=== PATIENT | male | born 1970 | race Caucasian/White ===

== ENCOUNTER → 2016-06-28 | Outpatient (CLI) | payer OTHER ==
--- NOTE | 2016-06-28 08:39 | DIAGNOSTIC IMAGING REPORT ---
GI SERIES W/AIR ROUTINE CLINICAL HISTORY: Epigastric pain. Gastric reflux. COMPARISON STUDY: None. FLUOROSCOPY TIME: 0.6 minutes. FINDINGS: 21 fluoroscopic images were obtained. Esophageal motility was normal. No esophageal mass or stricture was identified. No reflux was elicited. There was no hiatal hernia. Gastric fold pattern was normal. Duodenum was normal. Caliber of the opacified jejunum was normal. IMPRESSION: Unremarkable double contrast upper GI series. Electronically signed by: Randall Delcid M.D. 06/28/2016 8:38 AM Dictated Date/Time: 06/28/2016 8:37 AM
== END | disposition home or self-care (01) ==
LOC: C.RAD 07:50
PROVIDERS: ATTEND Internal Medicine
DX: R10.13 Epigastric pain (principal); K21.9 Gastro-esophageal reflux disease without esophagitis

== ENCOUNTER → 2016-08-06 | Outpatient (CLI) | payer OTHER ==
[2016-08-06 13:35] LABS: BASO % 0.8 %; BASO ABS # 0.04 K/uL (0-0.2); COMPLETE YES; EOS % 1.8 %; HEMATOCRIT 43.2 % (42-52); IG% 0.4 %; LYMPH % 30.6 %; LYMPH ABS # 1.55 K/uL (1.2-3.4); MEAN CELL VOLUME 87.1 fL (80-100); MEAN CORPUSCULAR HEMOGLOBIN 30.6 pg (25-34); MEAN CORPUSCULAR HGB CONC 35.2 g/dl (32-36); MONO % 10.7 %; NEUT % 55.7 %; PLATELET COUNT 218 K/uL (130-400); RED BLOOD COUNT 4.96 M/uL (4.7-6.1); WHITE BLOOD COUNT 5.06 K/uL (4.8-10.8)
[2016-08-06 14:13] LABS: RATIO 10.3 mcg/mg (0-30.0)
[2016-08-06 14:17] LABS: ALT/SGPT 31 U/L (12-78); BLOOD UREA NITROGEN 13 mg/dl (7-18); BUN/CREATININE RATIO 12.1 (10-20); CALCIUM 8.6 mg/dl (8.5-10.1); CARBON DIOXIDE 30 mmol/L (21-32); CHLORIDE 107 mmol/L (98-107); CHOLESTEROL 182 mg/dl (0-200); GLUCOSE 124 mg/dl (70-99); MAGNESIUM 2.1 mg/dl (1.8-2.4); POTASSIUM 4.5 mmol/L (3.5-5.1); SODIUM 142 mmol/L (136-145); TRIGLYCERIDES 111 mg/dl (0-150); VERY LOW DENSITY LIPOPROT CALC 22 mg/dl
[2016-08-06 14:26] LABS: ALB/GLOB RATIO 1.3 (0.9-2); ALKALINE PHOSPHATASE 60 U/L (45-117); AST/SGOT 15 U/L (15-37); FERRITIN 156.9 ng/ml (8.0-388.0); HDL CHOLESTEROL 45 mg/dl; LDL CHOLESTEROL CALCULATED 115 mg/dl
[2016-08-06 14:47] LABS: ESTIMATED AVERAGE GLUCOSE 123 mg/dl; HA1C FLAG Normal (Normal)
== END | disposition home or self-care (01) ==
LOC: C.LABBC 10:28
PROVIDERS: ATTEND Nurse Practitioner Family
DX: Z13.220 Encounter for screening for lipoid disorders (principal); Z13.1 Encounter for screening for diabetes mellitus; R53.83 Other fatigue; E55.9 Vitamin D deficiency, unspecified

== ENCOUNTER 2021-10-30 13:07 | Inpatient (IN) ==
[2021-10-30 14:01] LABS: Basophils # (auto) 0.03 K/uL (0-0.2); Basophils % (auto) 0.5 %; Eosinophils # (auto) 0.21 K/uL (0-0.5); Eosinophils % (auto) 3.7 %; Hemoglobin 15.6 g/dL (14.0-18.0); Immature Granulocytes # (auto) 0.01 K/uL (0.00-0.02); Immature Granulocytes % (auto) 0.2 %; Lymphocytes # (auto) 2.55 K/uL (1.2-3.4); Lymphocytes % (auto) 44.5 %; Mean Corpuscular Hgb Conc 35.5 g/dL (32-36); Mean Corpuscular Volume 90.2 fL (80-100); Mean Platelet Volume 10.2 fL (7.4-10.4); Monocytes # (auto) 0.46 K/uL (0.11-0.59); Neutrophils # (auto) 2.47 K/uL (1.4-6.5); Neutrophils % (auto) 43.1 %; Platelet Count 254 K/uL (130-400); RDW Coefficient of Variation 12.7 % (11.5-14.5); RDW Standard Deviation 41.5 fL (36.4-46.3); Red Blood Count 4.88 M/uL (4.7-6.1); White Blood Count 5.73 K/uL (4.8-10.8)
[2021-10-30] MEDS ORDERED: SODIUM CHLORIDE 0.9% 1000ML 1,000 ML IV ONE (14:09)
[2021-10-30] MEDS ORDERED: NITROGLYCERIN 2% OINTMENT 30GM TUBE ONE (14:10)
[2021-10-30] MEDS: NITROGLYCERIN 2% OINTMENT 30GM TUBE EXT STA (14:13)
--- NOTE | 2021-10-30 14:18 | Emergency Department Note ---
Impression & Plan Precordial chest pain, Bradycardia, Syncope, Elevated troponin ED Provider Note NAME: YVETTE LAKE AGE: 51 SEX: M : 1970 ARRIVES VIA: Ambulance INFORMANT: [Patient] ED PROVIDER(S): [Asad Lux MD] CHIEF COMPLAINT: Chest pain HISTORY OF PRESENT ILLNESS: The patient is a 51-year-old male with no known coronary disease. 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 He is also an avid swimmer. The patient states that today, about 1.5 hours ago, he started developing pressure at the top of his chest and base of his neck. He was not exerting himself. Things felt tight. Both shoulders and arms got heavy more so on the left side. He then developed some chest pain that he would rate as an 8/10. He felt tight and pressure-like across the chest. He actually had a syncopal spell although, he did not hit his head. He was in a chair when this happened. He presents by ambulance. The patient did receive aspirin orally prior to arrival. The patient states he was clammy and pale. He was nauseated, there was no vomiting. He was not short of breath. The patient has in the past had a syncopal event or 2. He has a history of prediabetes and a low pulse. He does not smoke. His grandfathers have had heart issues. REVIEW OF SYSTEMS: See HPI for pertinent positives and negatives. A total of ten systems were reviewed and were otherwise negative. PMHx/PSHx: See Below SOCIAL HISTORY: See Below. PHYSICAL EXAM: GENERAL: Patient is in no acute distress. HEENT: No acute trauma, normocephalic atraumatic, mucous membranes moist, no nasal congestion, no scleral icterus. NECK: No stridor, no adenopathy, no meningismus, trachea is midline. LUNGS: A few crackles at the bases, no wheezing, no respiratory distress, breath sounds equal. HEART: Bradycardic, regular rhythm, no murmurs. ABDOMEN: Soft, nontender, bowel sounds positive, no peritonitis. EXTREMITIES: No cyanosis or edema, full range of motion of all the joints without pain or difficulty, no signs for acute trauma. NEUROLOGIC: Oriented x 3, no acute motor or sensory deficits, no focal weakness. SKIN: No rash, no jaundice, no diaphoresis. DIFFERENTIAL DIAGNOSIS: Cardiac ischemia, aortic dissection, pulmonary embolism, pneumothorax, pneumonia, pericarditis, myocarditis, esophageal rupture, GERD, cholecystitis, pancreatitis, musculoskeletal, as well as other pathologies. EMERGENCY DEPARTMENT COURSE/PROCEDURES: ECG: Indication was chest pain. The ECG shows a sinus bradycardia with a rate of 48. There are no ST elevations, no PVCs. The QTc is 384. Repeat EKG: Indication was chest pain. The ECG shows a sinus bradycardia with a rate of 56. There is no ST elevation, no PVCs. The QTc is 418. Compared to the previous ECG, I see no significant change. 3rd ECG: Indication was chest pain. The ECG shows a sinus bradycardia with a rate of 46. There appears to be a potential inferior infarct present. There is no ST elevation, no PVCs, the QTc is 383. Compared to an ECG from earlier today, the potential inferior infarct is now present. Continuous Cardiac Monitoring: An order was placed for continuous cardiac monitoring. The monitor shows a rate of 49 with sinus bradycardia. Critical Care Note: I have personally spent 45 minutes of critical care time in the direct management of this patient. This includes bedside care, i nterpretation of diagnostic studies, and testing, discussion with consultants, patient, and family members, and other required patient management activities. This 45 minutes is in excess of all separately billable procedures. MEDICAL DECISION MAKING: There is no leukocytosis or concerning anemia. There is a normal platelet count. No significant electrolyte abnormality or renal failure. No worrisome liver enzyme elevation. No evidence for pancreatitis. The patient appeared to be in a euthyroid state. Chest x-ray did not show mediastinal widening, pneumonia or pneumothorax. Chest CT did not show aortic dissection or PE. Initial ECG showed a sinus bradycardia without any evidence for acute ischemic change. Initial troponin was normal, a repeat troponin about 2 or 3 hours later showed an elevation consistent with potential cardiac injury/strain. Patient did have a 3rd ECG while here in the ED, he had evidence for potential inferior infarct on ECG which was not noticed on the first 2 ECGs. The patient presents with chest pain. He had taken aspirin prior to arrival. He was given nitroglycerin paste and felt markedly better after this applicat ion. In addition to the nitroglycerin, the patient was given a liter of IV saline for hydration purposes. I spoke with cardiology--admission/observation was recommended. I talked to the patient about staying in the hospital, he was initially reluctant but did consent to a second troponin test. After the second troponin returned elevated, the patient did consent to stay in the hospital for further care. I spoke with the case management team, the on-call hospitalist has been consulted. Further cardiac work-up is clearly warranted. Past Med/Surg History Medical History Vasovagal near syncope Surgical History S/P tooth extraction Family History Uncle Myocardial infarction Cancer Prostate cancer Grandfather (Maternal) Heart disease Myocardial infarction Grandfather (Paternal) Heart disease Myocardial infarction Denies family history of Colon cancer Ovarian cancer Breast cancer Social History Smoking Status: Never smoker Second Hand Exposure: No; Hx Alcohol Use: Yes Alcohol type: beer Hx Substance Use: No Preferred Language: Guyanese Communication Ability: Effective Visual Impairment: No Limitations Hearing Ability: Normal Photographs Curator Required: No Beliefs That Will Affect Care: None marital status: Single Current Living Situation: Alone current occupational status: employed current occupation: Self-employed Other Information That Helps Us Care for You: No Feels Safe at Home: Yes Safety Concerns: Feels Safe At This Time Dental Care, Regularly: Yes Physical Activity Frequency: 3-4 Times per Week Assistive Devices: None Allergies Allergies Allergy/AdvReac Type Severity Reaction Status Date / Time erythromycin base Allergy Intermediate Hives Verified 10/30/21 15:48 Home Meds Home Medications Medication Instructions Recorded Confirmed aspirin 325 mg tablet 325 mg PO DIRECTED PRN 10/30/21 10/30/21 aspirin 81 mg chewable tablet 243 mg PO ONCE PRN 10/30/21 10/30/21 Results & Data (ED) Vital Signs Vital Signs - 24 hr 10/30/21 13:14 10/30/21 13:15 10/30/21 13:30 Temperature 36.5 C Temperature Source Temporal Artery Scan Pulse Rate 52 L 47 L 46 L Pulse Rhythm Regular Pulse Strength Normal Respiratory Rate 16 16 13 Respiratory Effort / Characteristics Non-Labored Respiratory Depth Normal Blood Pressure 133/89 Blood Pressure Mean 103 Pulse Oximetry 96 97 96 Oxygen Delivery Method Room Air Room Air Room Air Sepsis Recent Fever Within 48 Hours No Sepsis New/Unexplained Change in Mental Status No Sepsis Action Taken by Nursing No Action Required 10/30/21 13:45 10/30/21 13:46 10/30/21 13:53 Temperature Temperature Source Pulse Rate 51 L 52 L 48 L Pulse Rhythm Regular Pulse Strength Respiratory Rate 18 15 22 Respiratory Effort / Characteristics Respiratory Depth Blood Pressure 127/87 Blood Pressure Mean 100 Pulse Oximetry 97 98 97 Oxygen Delivery Method Room Air Room Air Room Air Sepsis Recent Fever Within 48 Hours Sepsis New/Unexplained Change in Mental Status Sepsis Action Taken by Nursing 10/30/21 14:00 10/30/21 14:12 10/30/21 14:15 Temperature Temperature Source Pulse Rate 54 L 53 L 51 L Pulse Rhythm Pulse Strength Respiratory Rate 18 22 16 Respiratory Effort / Characteristics Respiratory Depth Blood Pressure 139/93 148/86 H Blood Pressure Mean 108 106 Pulse Oximetry 98 97 98 Oxygen Delivery Method Room Air Room Air Room Air Sepsis Recent Fever Within 48 Hours Sepsis New/Unexplained Change in Mental Status Sepsis Action Taken by Nursing 10/30/21 14:30 10/30/21 14:45 10/30/21 15:00 Temperature Temperature Source Pulse Rate 47 L 50 L 48 L Pulse Rhythm Pulse Strength Respiratory Rate 16 14 14 Respiratory Effort / Characteristics Respiratory Depth Blood Pressure 131/91 141/88 H 144/87 H Blood Pressure Mean 104 105 106 Pulse Oximetry 97 99 Oxygen Delivery Method Room Air Room Air Sepsis Recent Fever Within 48 Hours Sepsis New/Unexplained Change in Mental Status Sepsis Action Taken by Nursing 10/30/21 15:15 10/30/21 15:30 10/30/21 15:45 Temperature Temperature Source Pulse Rate 56 L 53 L 56 L Pulse Rhythm Pulse Strength Respiratory Rate 20 18 Respiratory Effort / Characteristics Respiratory Depth Blood Pressure 145/88 H 169/97 H Blood Pressure Mean 107 121 Pulse Oximetry 98 94 Oxygen Delivery Method Room Air Room Air Sepsis Recent Fever Within 48 Hours Sepsis New/Unexplained Change in Mental Status Sepsis Action Taken by Nursing 10/30/21 16:00 10/30/21 16:15 10/30/21 16:30 Temperature Temperature Source Pulse Rate 51 L 57 L 75 Pulse Rhythm Pulse Strength Respiratory Rate 14 14 16 Respiratory Effort / Characteristics Respiratory Depth Blood Pressure 156/94 H 159/99 H 128/84 Blood Pressure Mean 114 119 98 Pulse Oximetry 97 97 Oxygen Delivery Method Room Air Room Air Sepsis Recent Fever Within 48 Hours Sepsis New/Unexplained Change in Mental Status Sepsis Action Taken by Nursing 10/30/21 16:45 10/30/21 17:00 10/30/21 17:01 Temperature Temperature Source Pulse Rate 55 L 58 L 54 L Pulse Rhythm Pulse Strength Respiratory Rate 13 15 13 Respiratory Effort / Characteristics Respiratory Depth Blood Pressure 161/92 H Blood Pressure Mean 115 Pulse Oximetry 98 99 98 Oxygen Delivery Method Room Air Room Air Room Air Sepsis Recent Fever Within 48 Hours Sepsis New/Unexplained Change in Mental Status Sepsis Action Taken by Nursing 10/30/21 17:15 Temperature Temperature Source Pulse Rate 58 L Pulse Rhythm Pulse Strength Respiratory Rate 20 Respiratory Effort / Characteristics Respiratory Depth Blood Pressure 154/103 H Blood Pressure Mean 120 Pulse Oximetry 95 Oxygen Delivery Method Room Air Sepsis Recent Fever Within 48 Hours Sepsis New/Unexplained Change in Mental Status Sepsis Action Taken by Alf Medications Current Medication List: was personally reviewed by me Laboratory Data Attestation: I reviewed the patient's lab results. Result diagrams: 10/30/21 13:19 10/30/21 13:19 Lab Results 10/30/21 10/30/21 10/30/21 Range/Units 13:19 13:19 13:34 WBC 5.73 (4.8-10.8) K/uL RBC 4.88 (4.7-6.1) M/uL Hgb 15.6 (14.0-18.0) g/dL Hct 44.0 (42-52) % MCV 90.2 (80-100) fL MCH 32.0 (25-34) pg MCHC 35.5 (32-36) g/dL RDW Std Deviation 41.5 (36.4-46.3) fL RDW Coeff of John 12.7 (11.5-14.5) % Plt Count 254 (130-400) K/uL MPV 10.2 (7.4-10.4) fL Immature Gran % (Auto) 0.2 % Neut % (Auto) 43.1 % Lymph % (Auto) 44.5 % [place] % (Auto) 8.0 % Eos % (Auto) 3.7 % Baso % (Auto) 0.5 % Neut # (Auto) 2.47 (1.4-6.5) K/uL Lymph # (Auto) 2.55 (1.2-3.4) K/uL [place] # (Auto) 0.46 (0.11-0.59) K/uL Eos # (Auto) 0.21 (0-0.5) K/uL Baso # (Auto) 0.03 (0-0.2) K/uL Immature Gran # (Auto) 0.01 (0.00-0.02) K/uL Sodium 137 (136-145) mmol/L Potassium 4.0 (3.5-5.1) mmol/L Chloride 103 (98-107) mmol/L Carbon Dioxide 24 (21-32) mmol/L Anion Gap 10 (3-11) BUN 13 (6-23) mg/dl Creatinine 1.06 (0.6-1.4) mg/dl Est Cr Clr Drug Dosing 96.7 ml/min Est GFR ( Amer) 93.1 ml/min Est GFR (Non-Af Amer) 80.3 ml/min BUN/Creatinine Ratio 12.3 (10-20) Glucose 150 H (70-99(Fasting)) mg/dl Calcium 9.3 (8.5-10.1) mg/dl Magnesium 2.0 (1.7-2.4) mg/dl Total Bilirubin 0.7 (0.2-1.0) mg/dl AST 17 (13-39) U/L ALT 14 (7-52) U/L Alkaline Phosphatase 66 (34-104) U/L Troponin I High Sens 16.4 (0-20) pg/ml Total Protein 6.7 (6.0-8.3) gm/dl Albumin 4.4 (3.4-5.0) gm/dl Globulin 2.3 L (2.5-4.0) gm/dl Albumin/Globulin Ratio 1.9 (0.9-2) Lipase 29 (11-82) U/L TSH (0.300-4.500) uIu/ml Lyme Disease IgG Ab (Negative) Lyme Disease IgM Ab (Negative) 10/30/21 10/30/21 10/30/21 Range/Units 13:34 13:34 16:35 WBC (4.8-10.8) K/uL RBC (4.7-6.1) M/uL Hgb (14.0-18.0) g/dL Hct (42-52) % MCV (80-100) fL MCH (25-34) pg MCHC (32-36) g/dL RDW Std Deviation (36.4-46.3) fL RDW Coeff of John (11.5-14.5) % Plt Count (130-400) K/uL MPV (7.4-10.4) fL Immature Gran % (Auto) % Neut % (Auto) % Lymph % (Auto) % [place] % (Auto) % Eos % (Auto) % Baso % (Auto) % Neut # (Auto) (1.4-6.5) K/uL Lymph # (Auto) (1.2-3.4) K/uL [place] # (Auto) (0.11-0.59) K/uL Eos # (Auto) (0-0.5) K/uL Baso # (Auto) (0-0.2) K/uL Immature Gran # (Auto) (0.00-0.02) K/uL Sodium (136-145) mmol/L Potassium (3.5-5.1) mmol/L Chloride (98-107) mmol/L Carbon Dioxide (21-32) mmol/L Anion Gap (3-11) BUN (6-23) mg/dl Creatinine (0.6-1.4) mg/dl Est Cr Clr Drug Dosing ml/min Est GFR ( Amer) ml/min Est GFR (Non-Af Amer) ml/min BUN/Creatinine Ratio (10-20) Glucose (70-99(Fasting)) mg/dl Calcium (8.5-10.1) mg/dl Magnesium (1.7-2.4) mg/dl Total Bilirubin (0.2-1.0) mg/dl AST (13-39) U/L ALT (7-52) U/L Alkaline Phosphatase (34-104) U/L Troponin I High Sens 75.1 H* D (0-20) pg/ml Total Protein (6.0-8.3) gm/dl Albumin (3.4-5.0) gm/dl Globulin (2.5-4.0) gm/dl Albumin/Globulin Ratio (0.9-2) Lipase (11-82) U/L TSH 1.948 (0.300-4.500) uIu/ml Lyme Disease IgG Ab Negative (Negative) Lyme Disease IgM Ab Negative (Negative) Administered Medications Discontinued Medications Sodium Chloride (Nss 1000ml) 1,000 mls @ 999 mls/hr IV .Q1H1M ONE Stop: 10/30/21 15:09 Last Infusion: 10/30/21 15:15 Dose: 0 mls/hr Documented by: [id number] Admin: 10/30/21 14:14 Dose: 999 mls/hr Documented by: [id number] Ioversol (Optiray 320 125ml) 121 ml IV ONCE ONE Stop: 10/30/21 15:38 Last Admin: 10/30/21 15:39 Dose: 121 ml Documented by: [id number] Nitroglycerin (Nitroglycerin 2% Ointment 30gm Tube) 1 inch EXT NOW STA Stop: 10/30/21 14:10 Last Admin: 10/30/21 14:13 Dose: 1 inch Documented by: [id number] Nitroglycerin (Nitroglycerin 2% Ointment 30gm Tube) Confirm Administered Dose 18 inch .ROUTE .STK-MED ONE Stop: 10/30/21 14:11 Last Admin: 10/30/21 14:13 Dose: Not Given Documented by: [id number] Nitroglycerin (Nitroglycerin 2% Ointment 30gm Tube) 1 inch EXT NOW STA Stop: 10/30/21 17:45 Last Admin: 10/30/21 17:54 Dose: 1 inch Documented by: [id number] Imaging Data Radiologist's Impression: Chest X-Ray 10/30/21 13:51 XR chest 1V portable CLINICAL HISTORY: Atypical chest pain. COMPARISON STUDY: Chest radiograph September 12, 2014. FINDINGS: No pneumothorax or pleural effusion is present. There is no consolidation to suggest pneumonia. No evidence for pulmonary edema. Borderline cardiomegaly is noted. IMPRESSION: No acute cardiopulmonary findings. ACT 112: Negative or not required by law. Electronically signed by: Randall Delcid M.D. 10/30/2021 2:15 PM Chest CTA 10/30/21 15:24 CT ANGIOGRAPHY OF THE CHEST, PULMONARY EMBOLUS PROTOCOL CLINICAL HISTORY: Midsternal chest pain. Syncope. COMPARISON STUDY: Chest radiographs September 12, 2014 and October 30, 2021. TECHNIQUE: Following IV administration of 121 mL of Optiray, helical axial images of the chest were obtained utilizing the pulmonary embolus protocol. Maximal intensity projections and sagittal and coronal reformats were viewed on an independent 3D workstation. IV contrast was administered without complication. Automated exposure control was utilized for the study. A dose lowering technique was utilized adhering to the principles of ALARA. CT DOSE: 511.18 mGy.cm FINDINGS: No pulmonary emboli are identified. There is no thoracic aortic dissection. Mild cardiomegaly is noted. No pericardial effusion. No enlarged thoracic lymph nodes are present. There is no pneumothorax or pleural effusion. No consolidation to suggest pneumonia. Groundglass opacities within the lungs reflect atelectasis. There is no acute fracture within the visualized bony thorax. Visualized portions of the upper abdomen are unremarkable. IMPRESSION: 1. No pulmonary emboli identified. 2. No thoracic aortic dissection. 3. Mild cardiomegaly. ACT 112: Negative or not required by law. Electronically signed by: Randall Delcid M.D. 10/30/2021 4:00 PM Discharge Plan Visit Data Chief Complaint: Chest Pain Stated Complaint: SYNCOPE ED Provider: Asad Lux Discharge Problem: Precordial chest pain, Bradycardia, Syncope, Elevated troponin Patient Disposition: Admitted As Inpatient Condition: Fair Discharge Instructions Interventions: ED Discharge Assessment Last Done: 10/30/21 19:28
[2021-10-30 14:28] LABS: Albumin Globulin Ratio 1.9 (0.9-2); Albumin Level 4.4 gm/dl (3.4-5.0); BUN Creatinine Ratio 12.3 (10-20); Bilirubin,Total 0.7 mg/dl (0.2-1.0); Calcium 9.3 mg/dl (8.5-10.1); Creatinine Clr Calc Pharmacy 96.7 ml/min; Est GFR (African American) 93.1 ml/min; Est GFR (Non-African American) 80.3 ml/min; Globulin 2.3 gm/dl (2.5-4.0); Total Protein 6.7 gm/dl (6.0-8.3)
[2021-10-30 14:50] LABS: Troponin I High Sensitivity 16.4 pg/ml (0-20)
[2021-10-30] MEDS ORDERED: OPTIRAY 320 125ml IV ONE (15:37)
--- NOTE | 2021-10-30 16:02 | CT Scan Report ---
CT ANGIOGRAPHY OF THE CHEST, PULMONARY EMBOLUS PROTOCOL CLINICAL HISTORY: Midsternal chest pain. Syncope. COMPARISON STUDY: Chest radiographs September 12, 2014 and October 30, 2021. TECHNIQUE: Following IV administration of 121 mL of Optiray, helical axial images of the chest were o btained utilizing the pulmonary embolus protocol. Maximal intensity projections and sagittal and cor onal reformats were viewed on an independent 3D workstation. IV contrast was administered without co mplication. Automated exposure control was utilized for the study. A dose lowering technique was ut ilized adhering to the principles of ALARA. CT DOSE: 511.18 mGy.cm FINDINGS: No pulmonary emboli are identified. There is no thoracic aortic dissection. Mild cardiomeg анна is noted. No pericardial effusion. No enlarged thoracic lymph nodes are present. There is no pneu mothorax or pleural effusion. No consolidation to suggest pneumonia. Groundglass opacities within the lungs reflect atelectasis. There is no acute fracture within the visualized bony thorax. Visualized portions of the upper abdomen are unremarkable. IMPRESSION: 1. No pulmonary emboli identified. 2. No thoracic aortic dissection. 3. Mild cardiomegaly. ACT 112: Negative or not required by law. Electronically signed by: Randall Delcid M.D. 10/30/2021 4:00 PM
--- NOTE | 2021-10-30 16:24 | Electrocardiogram Report ---
Test Reason : Blood Pressure : / mmHG Vent. Rate : 048 BPM Atrial Rate : 048 BPM P-R Int : 172 ms QRS Dur : 110 ms QT Int : 430 ms P-R-T Axes : 058 023 020 degrees QTc Int : 384 ms Sinus bradycardia Otherwise normal ECG When compared with ECG of 12-SEP-2014 13:59, No significant change was found Confirmed by Bayron Owusu ([id number]) on 10/30/2021 4:23:38 PM Referred By: REFERRED SELF Confirmed By:Bayron Owuus
--- NOTE | 2021-10-30 16:26 | Electrocardiogram Report ---
Test Reason : Blood Pressure : / mmHG Vent. Rate : 056 BPM Atrial Rate : 056 BPM P-R Int : 166 ms QRS Dur : 102 ms QT Int : 434 ms P-R-T Axes : 057 026 021 degrees QTc Int : 418 ms Sinus bradycardia with sinus arrhythmia Otherwise normal ECG When compared with ECG of 30-OCT-2021 13:17, (unconfirmed) No significant change was found Confirmed by Bayron Owusu ([id number]) on 10/30/2021 4:26:15 PM Referred By: REFERRED SELF Confirmed By:Bayron Owusu
[2021-10-30] MEDS ORDERED: NITROGLYCERIN 2% OINTMENT 30GM TUBE EXT STA (17:44)
--- NOTE | 2021-10-30 17:52 | History & Physical Report ---
Date of Service October 30, 2021 Patient was seen and examined independently I discussed the case with Liz Christianson PAC I reviewed pertinent past medical social family history and also the plan of care and agree with the plan of care. Patient had syncopal episode at rest has elevation of high-sensitivity troponin he did have some chest discomfort and neck discomfort. He has no significant coronary history he does have a poor diet by his own accounts. He does have episodes of some slower heart rates that he ascribes to us. He has had 2 previous syncopal episodes 20 years ago and 10 years ago. Upon initial evaluation the only thing that is untoward is his elevated high-sensitivity troponin at 75 this is gone up from his admission. EKG and physical exam are unremarkable. Patient be brought in for observation repeating enzymes in the morning consider stress testing. Check echocardiogram and Lyme titer. If high-sensitivity troponin continues to rise this may be someone that would proceed straight to cardiac catheterization. Any exceptions will be noted below Assessment & Plan (1) Chest pain: Plan: - Differential dx includes cardiac event vs MSK. PE, aortic dissection ruled out by imaging. Chest pain is not reproducible. He does not have many RFs for ACS but with a BMI > 30, prediabetic, 2 grandparents he believes had cardiac events early in life. - hsTrop 16.4 on presentation ~ 2 hours after initial chest pain, repeat 3 hours later--> 75.1, with T wave inversions in lead 3 and V1 on EKGs. - Took ASA at home prior to arrival. - Will trend troponin overnight. - K 4.0, Mg 2.0, recheck in AM. - Spoke with cardiology, recommend holding off on Heparin for now unless troponin continues to rise and plan for stress test in AM. - Will check fasting lipid panel, A1c in AM. - SL nitro, morphine prn for pain. (2) Bradycardia: Plan: - HR in mid-high 50s here. Reports a longstanding history of a low heart rate, this has been going on since before he started exercising to the extent he does. He noticed he would feel "strange" before bed and started to monitor his heart rate during these episodes, noting it would go down to 40s, never lower than 45. - Will check for Lyme. (3) Prediabetes: Plan: - Glucose 150 today, last a1c 1 year ago. - Check A1c in AM. Plan: - Admit to PCU. - SCDs for VTE ppx. - Full Code. History of Present Illness Chief Complaint: chest pain this afternoon with radiation to neck, arms Primary Care Provider: Landon Barone III, CRNP Fox Duque is a 51-year-old male with a history of prediabetes who presents today with chest pain. Earlier this afternoon, patient had acute onset of an upper chest/neck pain that felt like a tightness had come over him. It radiated into his shoulders and arms, more so left than right and he felt a heaviness. He began to feel nauseous and clammy, so he called his downstairs neighbor for assistance, and walked down to her apartment. When he got there but before he was able to sit down, he passed out, but regained consciousness very quickly. Neighbor promptly called EMS for transportation to ED for further evaluation. When he presented to ED, he rated his chest pain 8/10, but now after Nitropaste it is more like a 2/10. He was not physically active when the chest pain began or in the hours preceding the chest pain. 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 It has always gone away on its own without requiring intervention or radiating like today's pain did. In ED, pt is moderately hypertensive, HR in 50s, afebrile and SpO2 > 95% on RA. Labs significant for an initial high sensitivity trop 16.4, repeat 3 hours later 75.1. Glucose 150, otherwise labs unremarkable. CXR and chest CTA both unremarkable for acute process, specifically no PE or dissection noted. Allergies Allergy/AdvReac Type Severity Reaction Status Date / Time erythromycin base Allergy Intermediate Hives Verified 10/30/21 15:48 Home Medications Medication Instructions Recorded Confirmed Type aspirin 325 mg tablet 325 mg PO DIRECTED PRN 10/30/21 10/30/21 History aspirin 81 mg chewable tablet 243 mg PO ONCE PRN 10/30/21 10/30/21 History Past Med/Surg History Medical History Vasovagal near syncope Surgical History S/P tooth extraction Family History (Updated 10/30/21 @ 18:48 by Liz Christianson PA-C) Uncle Myocardial infarction Cancer Prostate cancer Grandfather (Maternal) Heart disease Myocardial infarction Grandfather (Paternal) Heart disease Myocardial infarction Denies family history of Colon cancer Ovarian cancer Breast cancer Social History Smoking Status: Never smoker Second Hand Exposure: No; Hx Alcohol Use: Yes Hx Substance Use: No Preferred Language: Romanian Visual Impairment: No Limitations Hearing Ability: Normal marital status: Single Current Living Situation: Alone current occupational status: employed current occupation: Self-employed Feels Safe at Home: Yes Dental Care, Regularly: Yes Physical Activity Frequency: 3-4 Times per Week Review of Systems Review of Systems: Constitutional: No fever/chills, weakness, fatigue, myalgias, anorexia, night sweats Eyes: No diplopia, no worsening or blurred vision ENT: normal hearing, no trouble swallowing Respiratory: No cough, sputum, dyspnea at rest or on exertion Cardiovascular: central chest/neck pain, "tightness" with radiation to b/l arms, without palpitations Abdomen: No pain, nausea, vomiting, diarrhea or constipation : Denies dysuria, hematuria, increased urgency/frequency, urinary retention Musculoskeletal: No joint pain, calf pain, swelling Neurologic: No weakness, numbness/tingling, or balance problems Psychiatric: No anxiety or depression Skin: No rash or itch Physical Exam Physical Exam: General: awake, alert, no apparent distress Head: Normocephalic, atraumatic ENT: PERRL, EOMI, no pharyngeal exudate, mucous membranes moist Chest: Clear to auscultation, on room air, no adventitious breath sounds Cardiac: Regular rate and rhythm, no murmur, no JVD, normal peripheral pulses, good capillary refill Abdominal: NABS x 4 quadrants, soft, nontender to palpation, no rebound, guarding or tenderness Extremities: Normal inspection, no peripheral edema or erythema, calfs nontender to palpation Psych: Normal mood and affect Neuro: AAO x 3, strength intact bilaterally and rated 5/5, no motor deficits, speech is clear, no peripheral sensory deficits Skin: no rash or erythema Results & Data Results & Data ([facility]) Vital Signs (Past 12 Hours) Vital Signs Temp Pulse Resp BP Pulse Ox 10/30/21 17:15 58 L 20 154/103 H 95 10/30/21 17:01 54 L 13 161/92 H 98 10/30/21 17:00 58 L 15 99 10/30/21 16:45 55 L 13 98 10/30/21 16:30 75 16 128/84 97 10/30/21 16:15 57 L 14 159/99 H 97 10/30/21 16:00 51 L 14 156/94 H 10/30/21 15:45 56 L 18 169/97 H 94 10/30/21 15:30 53 L 10/30/21 15:15 56 L 20 145/88 H 98 10/30/21 15:00 48 L 14 144/87 H 99 10/30/21 14:45 50 L 14 141/88 H 97 10/30/21 14:30 47 L 16 131/91 10/30/21 14:15 51 L 16 148/86 H 98 10/30/21 14:12 53 L 22 139/93 97 10/30/21 14:00 54 L 18 98 10/30/21 13:53 48 L 22 97 10/30/21 13:46 52 L 15 127/87 98 10/30/21 13:45 51 L 18 97 10/30/21 13:30 46 L 13 96 10/30/21 13:15 47 L 16 97 10/30/21 13:14 36.5 C 52 L 16 133/89 96 Laboratory Results Abnormal lab results 10/30/21 10/30/21 Range/Units 13:19 16:35 Glucose 150 H (70-99(Fasting)) mg/dl Troponin I High Sens 75.1 H* D (0-20) pg/ml Globulin 2.3 L (2.5-4.0) gm/dl Diagnostic Findings Chest X-Ray 10/30/21 13:51 XR chest 1V portable CLINICAL HISTORY: Atypical chest pain. COMPARISON STUDY: Chest radiograph September 12, 2014. FINDINGS: No pneumothorax or pleural effusion is present. There is no consolidation to suggest pneumonia. No evidence for pulmonary edema. Borderline cardiomegaly is noted. IMPRESSION: No acute cardiopulmonary findings. ACT 112: Negative or not required by law. Electronically signed by: Randall Delcid M.D. 10/30/2021 2:15 PM Chest CTA 10/30/21 15:24 CT ANGIOGRAPHY OF THE CHEST, PULMONARY EMBOLUS PROTOCOL CLINICAL HISTORY: Midsternal chest pain. Syncope. COMPARISON STUDY: Chest radiographs September 12, 2014 and October 30, 2021. TECHNIQUE: Following IV administration of 121 mL of Optiray, helical axial images of the chest were obtained utilizing the pulmonary embolus protocol. Maximal intensity projections and sagittal and coronal reformats were viewed on an independent 3D workstation. IV contrast was administered without complication. Automated exposure control was utilized for the study. A dose lowering technique was utilized adhering to the principles of ALARA. CT DOSE: 511.18 mGy.cm FINDINGS: No pulmonary emboli are identified. There is no thoracic aortic dissection. Mild cardiomegaly is noted. No pericardial effusion. No enlarged thoracic lymph nodes are present. There is no pneumothorax or pleural effusion. No consolidation to suggest pneumonia. Groundglass opacities within the lungs reflect atelectasis. There is no acute fracture within the visualized bony thorax. Visualized portions of the upper abdomen are unremarkable. IMPRESSION: 1. No pulmonary emboli identified. 2. No thoracic aortic dissection. 3. Mild cardiomegaly. ACT 112: Negative or not required by law. Electronically signed by: Randall Delcid M.D. 10/30/2021 4:00 PM ECG Additional Comments: 10/30/21 at 2:02 PM: Sinus bradycardia with sinus arrhythmia Otherwise normal ECG When compared with ECG of 30-OCT-2021 13:17, (unconfirmed) No significant change was found Confirmed by Bayron Owusu ([id number]) on 10/30/2021 4:26:15 PM 10/30/21 at 1:17 PM: Sinus bradycardia Otherwise normal ECG When compared with ECG of 12-SEP-2014 13:59, No significant change was found Confirmed by Bayron Owusu ([id number]) on 10/30/2021 4:23:38 PM Code Status & VTE Plan Code Status Full Code. PG Care Time/CCT Total # of Minutes Spent Total Time Spent with Patient: Total time spent is greater than 50% in coordination of care (as documented) at patient's floor/unit and/or counseling patient: Coding Level of Care Code 26276 Initial Inpt Care Lvl 2 Diagnoses Chest pain R07.9 Prediabetes R73.03 Bradycardia R00.1
[2021-10-30] MEDS ORDERED: ACETAMINOPHEN 325 MG TAB PO PRN (19:32)
[2021-10-30] MEDS ORDERED: POLYETHYLENE (MIRALAX) 17 GM PACK PO PRN (19:32)
[2021-10-30] MEDS ORDERED: NITROGLYCERIN SL 0.4 MG/TAB TAB SL PRN (19:32)
[2021-10-30] MEDS ORDERED: ONDANSETRON INJ 2 MG/ML 2 ML VIAL IV PRN (19:32)
[2021-10-30] MEDS ORDERED: MoRPHine SULFATE 2 MG/ML CARP IV PRN (19:32)
--- NOTE | 2021-10-30 21:17 | Communication Note ---
Date of Service: October 30, 2021 Was notified by RN around 20:30 that patient's CP was worsening despite appropriate medical therapy. Patient continued to be bradycardic, but vitals were otherwise stable. I started patient on a heparin gtt and ordered a repeat troponin - the first was 16, second was 75, the third I ordered came back at 1940. I did not make any changes at that time since heparin gtt had already been ordered. Resident Activity Tracking Resident Involvement: Resident Care Provided and Title Coordinator Coverage Note Care Provided: Adult Hospital Medicine
[2021-10-30 21:30] LABS: Lyme Ab IgG w/WB Rflx Negative (Negative); Lyme Ab IgM w/WB Rflx Negative (Negative)
[2021-10-30] MEDS ORDERED: HEPARIN SODIUM/DEXTROSE 25,000 UNITS/500 ML BAG IV SCH (21:30)
[2021-10-30] MEDS ORDERED: Heparin IV Adult Wt-Based Low-Dose *NO* Bolus Protocol IV SCH (21:30)
[2021-10-30 22:01] LABS: Partial Thromboplastin Time 26.6 Seconds (21.0-31.0)
[2021-10-31 06:10] LABS: Basophils # (auto) 0.02 K/uL (0-0.2); Basophils % (auto) 0.2 %; Eosinophils # (auto) 0.03 K/uL (0-0.5); Eosinophils % (auto) 0.3 %; Hematocrit (blood only) 40.7 % (42-52); Hemoglobin 14.3 g/dL (14.0-18.0); Immature Granulocytes # (auto) 0.03 K/uL (0.00-0.02); Immature Granulocytes % (auto) 0.3 %; Lymphocytes # (auto) 1.34 K/uL (1.2-3.4); Lymphocytes % (auto) 14.5 %; Mean Corpuscular Hemoglobin 32.1 pg (25-34); Mean Corpuscular Hgb Conc 35.1 g/dL (32-36); Mean Corpuscular Volume 91.3 fL (80-100); Monocytes # (auto) 0.84 K/uL (0.11-0.59); Monocytes % (auto) 9.1 %; Neutrophils # (auto) 6.96 K/uL (1.4-6.5); Neutrophils % (auto) 75.6 %; Platelet Count 226 K/uL (130-400); RDW Coefficient of Variation 12.7 % (11.5-14.5); RDW Standard Deviation 42.7 fL (36.4-46.3); Red Blood Count 4.46 M/uL (4.7-6.1); White Blood Count 9.22 K/uL (4.8-10.8)
[2021-10-31 06:22] LABS: Partial Thromboplastin Ratio 1.3; Partial Thromboplastin Time 35.3 Seconds (21.0-31.0)
[2021-10-31] MEDS ORDERED: HEPARIN SOD (PORCINE) 1000 UNIT/ML IV ONE (06:26)
[2021-10-31 06:34] LABS: BUN Creatinine Ratio 11.4 (10-20); Calcium 8.5 mg/dl (8.5-10.1); Chol HDL Ratio 3.2 (0-5); Creatinine Clr Calc Pharmacy 85.9 ml/min; Est GFR (African American) 85.2 ml/min; Est GFR (Non-African American) 73.5 ml/min; Magnesium 1.8 mg/dl (1.7-2.4)
[2021-10-31 07:58] LABS: Estimated Average Glucose 117 mg/dl; Hemoglobin A1C 5.7 % (4.5-5.6)
[2021-10-31] MEDS ORDERED: PROMETHAZINE HCL 6.25 MG in SODIUM CHLORIDE 0.9% 50 ML IV STA (08:46)
[2021-10-31] MEDS ORDERED: ASPIRIN 81 MG CHEW ONE (08:56)
[2021-10-31] MEDS ORDERED: LIDOCAINE 1% LOCAL 20 ML VIAL ONE (09:15)
--- NOTE | 2021-10-31 10:09 | Cardiology Consultation ---
Date of Consultation October 31, 2021 Assessment & Plan (1) NSTEMI (non-ST elevated myocardial infarction): Presentation consistent with high risk NSTEMI. Suspect high-grade RCA disease. With ongoing nausea/chest symptoms recommend proceeding directly with cardiac catheterization. Discussed procedure including risk, benefits, alternatives. Patient wishes to discuss further with family. We will revisit later in the day. In the interim continue to trend troponin, check echocardiogram. Continue heparin infusion. Start aspirin, statin. Hold on beta-esperanza with bradycardia. Start FERMÍN/ARB postcardiac testing. History of Present Illness Attending Physician: Lm Meadows History of Present Illness Mr. Reeves is a very pleasant 51-year-old man seen in the telemetry unit due to NSTEMI. No prior cardiac history. Carries diagnosis of prediabetes. On no home medications. Lifelong never smoker. Family history of premature CAD with both grandfathers having MIs in their late 30s/40s. Yesterday, approximately noon developed acute onset chest pressure with tightness radiating to bilateral shoulders left greater than right and up into his neck. This was associated with presyncopal symptoms and actually passed out when when to seek help from his neighbor. Presented to ED where ECG showed sinus bradycardia with subtle ST changes in inferior leads (most notable ECG 1752). Troponin trended up to 1900 yesterday evening. Continued to have intermittent chest pain as well as nausea/multiple episodes of vomiting overnight. Received Nitropaste, morphine and started on heparin infusion. Today continues to endorse nausea, mild left-sided chest discomfort. Sinus bradycardia down to 30s overnight on telemetry. Denies having prior similar episodes of chest pain in the past. Has had vasovagal syncope, 2 episodes (1 in his 20s, 1 in his 30s). Reports long-term bradycardia at rest with intermittent episodes of palpitations occurring at night. At baseline patient very active frequently swims 1 to 1-1/2 miles without any limiting symptoms. Social history: Lives independently. Currently drives for [employer]. Denies tobacco. Drinks 3-4 beers a night. Allergies Allergy/AdvReac Type Severity Reaction Status Date / Time erythromycin base Allergy Intermediate Hives Verified 10/30/21 15:48 Home Medications Medication Instructions Recorded Confirmed Type aspirin 325 mg tablet 325 mg PO DIRECTED PRN 10/30/21 10/30/21 History aspirin 81 mg chewable tablet 243 mg PO ONCE PRN 10/30/21 10/30/21 History Patient History Medical History Vasovagal near syncope Surgical History S/P tooth extraction Family History Uncle Myocardial infarction Cancer Prostate cancer Grandfather (Maternal) Heart disease Myocardial infarction Grandfather (Paternal) Heart disease Myocardial infarction Denies family history of Colon cancer Ovarian cancer Breast cancer Social History Smoking Status: Never smoker Second Hand Exposure: No; Hx Alcohol Use: Yes Alcohol type: beer Hx Substance Use: No Preferred Language: Macedonian Communication Ability: Effective Visual Impairment: No Limitations Hearing Ability: Normal Flag Car Driver Required: No Beliefs That Will Affect Care: None marital status: Single Current Living Situation: Alone current occupational status: employed current occupation: Self-employed Other Information That Helps Us Care for You: No Feels Safe at Home: Yes Safety Concerns: Feels Safe At This Time Dental Care, Regularly: Yes Physical Activity Frequency: 3-4 Times per Week Assistive Devices: None Review of Systems Review of Systems: All systems reviewed & are unremarkable except as noted in HPI & below Physical Exam Physical Exam: General: Comfortable HEENT: Sclerae anicteric Lungs: Clear to auscultation bilaterally, no crackles or wheezes Cardiac: Regular rate and rhythm, no murmurs. Vascular: 2+ radial, DP pulses. No bruits Abdomen: Soft, nontender Extremities: Well perfused, no peripheral edema Neuro: Nonfocal Psych: Alert orient x3, normal affect and mood Results & Data ([facility]) Vital Signs (Past 12 Hours) Vital Signs Temp Pulse Pulse Resp BP BP Pulse Ox 10/31/21 07:36 98.8 F 53 L 20 106/65 95 10/31/21 04:34 99.5 F 51 L 18 94/59 L 95 10/31/21 00:03 98.8 F 54 L 18 95/60 L 97 10/30/21 23:00 50 L PG Care Time/CCT Total # of Minutes Spent Total Time Spent with Patient: Total time spent is greater than 50% in coordination of care (as documented) at patient's floor/unit and/or counseling patient: Coding Level of Care Code 16215 Inpt Consult Level 4 Diagnoses NSTEMI (non-ST elevated myocardial infarction) I21.4
[2021-10-31] MEDS: ASPIRIN 81 MG ECTAB PO SCH (11:15)
[2021-10-31] MEDS: ATORVASTATIN 40 MG TAB PO SCH (11:15)
--- NOTE | 2021-10-31 11:39 | Electrocardiogram Report ---
Test Reason : Blood Pressure : / mmHG Vent. Rate : 046 BPM Atrial Rate : 046 BPM P-R Int : 160 ms QRS Dur : 114 ms QT Int : 438 ms P-R-T Axes : 057 034 -03 degrees QTc Int : 383 ms Sinus bradycardia Cannot rule out Inferior infarct , age undetermined Abnormal ECG When compared with ECG of 30-OCT-2021 14:02, Inferior infarct is now Present Confirmed by Bayron Owusu ([id number]) on 10/31/2021 11:38:55 AM Referred By: REFERRED SELF Confirmed By:Bayron Owusu
--- NOTE | 2021-10-31 11:54 | XCELERA ---
[id number]
--- NOTE | 2021-10-31 11:58 | Electrocardiogram Report ---
Test Reason : Blood Pressure : / mmHG Vent. Rate : 042 BPM Atrial Rate : 042 BPM P-R Int : 160 ms QRS Dur : 104 ms QT Int : 440 ms P-R-T Axes : 056 029 -10 degrees QTc Int : 367 ms Marked sinus bradycardia Inferior infarct (cited on or before 30-OCT-2021) Abnormal ECG When compared with ECG of 30-OCT-2021 17:52, (unconfirmed) No significant change was found Confirmed by Bayron Owusu ([id number]) on 10/31/2021 11:58:35 AM Referred By: REFERRED SELF Confirmed By:Bayron Owusu
--- NOTE | 2021-10-31 13:23 | Pre Anesthesia Assessment ---
Date of Service October 31, 2021 Pre Sedation Assessment Vital Signs Temp Pulse Pulse Resp BP BP BP 10/31/21 13:16 78 18 101/72 10/31/21 11:17 99.0 F 45 L 18 117/75 117/75 10/31/21 08:00 47 L 10/31/21 07:36 98.8 F 53 L 20 106/65 10/31/21 04:34 99.5 F 51 L 18 94/59 L 10/31/21 00:03 98.8 F 54 L 18 95/60 L 10/30/21 23:00 50 L 10/30/21 20:42 56 L 116/64 10/30/21 19:32 98.4 F 46 L 18 152/81 H 10/30/21 19:30 48 L 10/30/21 17:15 58 L 20 154/103 H 10/30/21 17:01 54 L 13 161/92 H 10/30/21 17:00 58 L 15 10/30/21 16:45 55 L 13 10/30/21 16:30 75 16 128/84 10/30/21 16:15 57 L 14 159/99 H 10/30/21 16:00 51 L 14 156/94 H 10/30/21 15:45 56 L 18 169/97 H 10/30/21 15:30 53 L 10/30/21 15:15 56 L 20 145/88 H 10/30/21 15:00 48 L 14 144/87 H 10/30/21 14:45 50 L 14 141/88 H 10/30/21 14:30 47 L 16 131/91 10/30/21 14:15 51 L 16 148/86 H 10/30/21 14:12 53 L 22 139/93 10/30/21 14:00 54 L 18 10/30/21 13:53 48 L 22 10/30/21 13:46 52 L 15 127/87 10/30/21 13:45 51 L 18 10/30/21 13:30 46 L 13 Pulse Ox 10/31/21 13:16 96 10/31/21 11:17 97 10/31/21 08:00 10/31/21 07:36 95 10/31/21 04:34 95 10/31/21 00:03 97 10/30/21 23:00 10/30/21 20:42 10/30/21 19:32 98 10/30/21 19:30 10/30/21 17:15 95 10/30/21 17:01 98 10/30/21 17:00 99 10/30/21 16:45 98 10/30/21 16:30 97 10/30/21 16:15 97 10/30/21 16:00 10/30/21 15:45 94 10/30/21 15:30 10/30/21 15:15 98 10/30/21 15:00 99 10/30/21 14:45 97 10/30/21 14:30 10/30/21 14:15 98 10/30/21 14:12 97 10/30/21 14:00 98 10/30/21 13:53 97 10/30/21 13:46 98 10/30/21 13:45 97 10/30/21 13:30 96 Cardiovascular RRR, no murmur, no edema Respiratory normal respiratory effort, lungs clear to auscultation Pre-Sedation Airway Assessment Smoking Status: Never smoker Hx Sleep Apnea: Yes Hx Difficult Intubation: No Short, Thick Neck: Yes Thyromental Distance: > or= 3.5 Finger Breadths Oral Cavity: + WNL Mallampati Class: III ASA: ASA2 NPO Status Date of Last Intake of Fluids: 10/31/21 Time of Last Intake of Fluids: 07:00 Date of Last Intake of Solid Food: 10/30/21 Time of Last Intake of Solid Foods: 23:00 Procedure Planning Contraindications for Sedation: none Current Medications Reviewed: Yes Notes The planned sedation has been discussed with the patient. Informed Consent was obtained. I have identified the patient, determined the appropriateness of sedation and have assessed the patient immediately prior to the procedure. All medicine(s) and interventions are by my order.
[2021-10-31 13:28] LABS: Partial Thromboplastin Ratio 2.1
[2021-10-31] MEDS ORDERED: MIDAZOLAM HCL 1 MG/ML 2ML VIAL ONE (13:28)
[2021-10-31 13:29] LABS: Partial Thromboplastin Time 57.3 Seconds (21.0-31.0)
[2021-10-31] MEDS ORDERED: fentaNYL citrate 100 MCG/2 ML VIAL ONE (13:29)
[2021-10-31] MEDS ORDERED: HEPARIN (PORCINE) 1000 UNIT/ML 10 ML (CATH LAB USE ONLY) ONE (13:29)
[2021-10-31] MEDS ORDERED: niCARdipine HCL INJ 2.5 MG/ML 10 ML AMP ONE ×2 (13:29→14:21)
[2021-10-31] MEDS ORDERED: NITROGLYCERIN/D5W 100MCG/ML 20ML SYR ONE ×2 (13:30→14:21)
[2021-10-31] MEDS ORDERED: EPTIFIBATIDE 2 MG/ML 10 ML VIAL (CATH LAB USE ONLY) IV ONE ×2 (14:05→14:13)
[2021-10-31] MEDS ORDERED: TICAGRELOR 90 MG TAB ONE (14:34)
--- NOTE | 2021-10-31 14:52 | Post Anesthesia Assessment ---
Date of Service October 31, 2021 Post Sedation Assessment Vital Signs Temp Pulse Pulse Resp BP BP BP 10/31/21 14:45 52 L 16 102/55 L 10/31/21 13:16 78 18 101/72 10/31/21 11:17 99.0 F 45 L 18 117/75 117/75 10/31/21 08:00 47 L 10/31/21 07:36 98.8 F 53 L 20 106/65 10/31/21 04:34 99.5 F 51 L 18 94/59 L 10/31/21 00:03 98.8 F 54 L 18 95/60 L 10/30/21 23:00 50 L 10/30/21 20:42 56 L 116/64 10/30/21 19:32 98.4 F 46 L 18 152/81 H 10/30/21 19:30 48 L 10/30/21 17:15 58 L 20 154/103 H 10/30/21 17:01 54 L 13 161/92 H 10/30/21 17:00 58 L 15 10/30/21 16:45 55 L 13 10/30/21 16:30 75 16 128/84 10/30/21 16:15 57 L 14 159/99 H 10/30/21 16:00 51 L 14 156/94 H 10/30/21 15:45 56 L 18 169/97 H 10/30/21 15:30 53 L 10/30/21 15:15 56 L 20 145/88 H 10/30/21 15:00 48 L 14 144/87 H Pulse Ox 10/31/21 14:45 97 10/31/21 13:16 96 10/31/21 11:17 97 10/31/21 08:00 10/31/21 07:36 95 10/31/21 04:34 95 10/31/21 00:03 97 10/30/21 23:00 10/30/21 20:42 10/30/21 19:32 98 10/30/21 19:30 10/30/21 17:15 95 10/30/21 17:01 98 10/30/21 17:00 99 10/30/21 16:45 98 10/30/21 16:30 97 10/30/21 16:15 97 10/30/21 16:00 10/30/21 15:45 94 10/30/21 15:30 10/30/21 15:15 98 10/30/21 15:00 99 Recovery Score Activity: Moves 4 extremities Respiration: Deep Breath/Cough Circulation: +/-20% PreAnes Value Consciousness: Fully Awake Oxygen Saturation: > 92% On Room Air Post Anesthesia Score: 10 Discharge Sedation Level of Care: Fast Track Phase II Post Sedation Plan On clinical assessment, the patient appears to have tolerated the sedation without complications. Patient is recovering as anticipated. Patient will continue to be monitored by nursing and may be discharged when sedation discharge criteria are met per below protocol. Upon Completions of procedure up to 15 minutes continue every 5 minute vital signs and the P.A.R. score; then discharge to a Phase I or Fast Track to Phase II per the following guidelines: * Discharge Patient to appropriate Phase II area if PAR is 8 or greater or return to pre- procedure baseline. The post - procedure orders will be as directed. * If PAR score is less than 8 or not return to pre-procedure baseline then patient will follow Phase I monitoring till PAR is reached for Phase II. The Phase I may be done in procedure room or may call to secure a Phase I area. * If naloxone or flumazenil are used for reversal, hold in Phase I for continued monitoring from when last reversal dose was given for a minimum of 60 minutes or longer pending the nurse and/or physician discretion of patient condition before discharge to Phase II. Please call the Sedation Physician to re-evaluate and complete post-note for discharge to Phase II area. Do NOT discharge from procedure sedation or Phase 1 until post- sedation evaluation note is complete by procedure /sedation MD Sedation Discharge Instructions to be given to the patient at discharge to home.
--- NOTE | 2021-10-31 15:05 | Cardiac Catheterization ---
[facility] Data: Oral Surgery Assistant Cardiac Status Clinical evaluation leading to the procedure CAD Presenation: Non STEMI Anginal Classification: CCS IV Diagnostic Physicians Name: Sean Bennett MD Closure Device Recommendations: PCI without planned CABG Cardiac Cath Procedure Full Procedure Date October 31, 2021 Pre-Procedure Diagnosis Pre-Procedure Diagnosis: Non STEMI AUC Score AUC Score: 8 Post-Procedure Diagnosis Post-Procedure Diagnosis: Severe CAD, Successful PCI and Normal Intracardiac Pressures Procedure(s) Performed Procedure(s) Performed: Coronary Angiography, Left Heart Cath and Drug Eluting Stent Irrigation Supervisor Sean Bennett MD Insulator Technician(s) Jannielidionisio Estimated Blood Loss Estimated Blood Loss: 10 Medication(s) Medication(s): Fentanyl, Heparin, Integrilin, Lidocaine 1%, Nicardipine, Nitroglycerin and Versed Medication(s): Ticagrelor Summary of Findings Indication: High risk NSTEMI Access: 6 Fr right radial artery Catheters: [place], diagnostic JL 3.5, JR4 guide Findings: LM -normal caliber, no significant disease LAD -medium caliber no significant disease, tapers to apex. Medium D1 without disease. Provides [id number] collaterals via septals. Circumflex -medium caliber, midsegment luminal irregularities. Gives off 3 OM's without significant disease RCA -dominant, large caliber, 100% earlymid occlusion with heavy thrombus burden. PDA/distal RCA fills partially retrograde via collaterals. LVEDP -16 -- PCI -- Antithrombotic therapy: Heparin, Integrilin, ticagrelor Procedure: RCA cannulated with JR4 guide Pre-procedure flow RICARDO 0 Creative Assistant 50 wire passed across lesion into distal vessel Mid RCA lesion predilated with 3.0, 3.25 compliant balloons Dilated lesion stented with 4.0 x 30 mm [place] drug-eluting stent Stent post-dilated with 4.5 noncompliant balloon Residual thrombus at proximal edge of stent covered with second MANUELA (4.0 x 8 mm [place]) Stents postdilated again with 4.5 NC IC vasodilators administered for spasm Post procedure RICARDO 3 flow, stent well expanded with minimal residual stenosis. Minimal residual thrombus at distal end of initial stent and behind stent struts of second MANUELA. Arterial Closure: TR band Summary: 1. Acute on chronic earlymid RCA 100% occlusion with heavy thrombus burden 2. No significant nonculprit vessel CAD 3. Normal left-sided filling pressure 4. Successful PCI of proximal to mid RCA with 2 overlapping drug-eluting stents (4.0 x 8, 4.0 x 30 mm [place]; postdilated with 4.5 NC). Recommendations: To PCU for continued monitoring Loaded with ticagrelor 180 mg in Oral Surgery Assistant Continue dual-antiplatelet therapy for at least 1 year. Consider extended therapy with heavy thrombus burden. Continue statin, and ASCVD risk factor modification Consult cardiac Rehab Hemodynamics Rest Ao:: 97/63/79 Final Ao: 101/60/78 LV: 107/16 Recommendations Recommendations: PCI without planned CABG Specimens Specimens: None Radiation Exposure (mGy) 2128 Contrast (mls) 80 Anesthesia Moderate 0534-9365 Procedural Complication(s) None Disposition PCU I attest to the content of the Intraoperative Record and any orders documented therein. Any exceptions are noted below. [facility] Card Cath Procedure Codes Cardiac Catheterization Procedure 1: Cardiovascular Cath Procedures: 83426 Coronaries and LHC (+/-LV) Moderate Sedation Procedure 1: Sedation/Anesthesia: 71038 Mod Sedation by the same physician;Init15 Min Child Age 5 & Up Procedure 2: Sedation/Anesthesia: 80767 Mod Sedation by the same physician; Ea [id number] Minutes Stenting Procedure 1: Cardiovascular Stent Procedures: 81797 Perc transluminal revascularization of acute sub/total occl, aMI PG Care Time/CCT Total # of Minutes Spent Total Time Spent with Patient: Total time spent is greater than 50% in coordination of care (as documented) at patient's floor/unit and/or counseling patient:
[2021-10-31] MEDS ORDERED: SODIUM CHLORIDE 0.9% 1000ML 1,000 ML IV SCH (15:15)
--- NOTE | 2021-10-31 17:52 | Hospitalist Progress Note ---
Date of Service October 31, 2021 Assessment & Plan (1) Chest pain: Plan: NSTEMI - Differential dx includes cardiac event vs MSK. PE, aortic dissection ruled out by imaging. Chest pain is not reproducible. He does not have many RFs for ACS but with a BMI > 30, prediabetic, 2 grandparents he believes had cardiac events early in life. - hsTrop 16.4 on presentation ~ 2 hours after initial chest pain, repeat 3 hours later--> 75.1, with T wave inversions in lead 3 and V1 on EKGs. - Took ASA at home prior to arrival. - Will trend troponin overnight. - K 4.0, Mg 2.0, recheck in AM. - Spoke with cardiology, recommend holding off on Heparin for now unless t roponin continues to rise and plan for stress test in AM. - Will check fasting lipid panel, A1c in AM. - SL nitro, morphine prn for pain. On 10/31 Patient in the afternoon decided on a cardiac cath as his trop was rising.over 2400 (high sensitive trop) Summary: 1. Acute on chronic earlymid RCA 100% occlusion with heavy thrombus burden 2. No significant nonculprit vessel CAD 3. Normal left-sided filling pressure 4. Successful PCI of proximal to mid RCA with 2 overlapping drug-eluting stents (4.0 x 8, 4.0 x 30 mm [place]; postdilated with 4.5 NC). Recommendations: To PCU for continued monitoring Loaded with ticagrelor 180 mg in Professor Of Violin Continue dual-antiplatelet therapy for at least 1 year. Consider extended therapy with heavy thrombus burden. Continue statin, and ASCVD risk factor modification Consult cardiac Rehab (2) Bradycardia: Plan: - HR in mid-high 50s here. Reports a longstanding history of a low heart rate, this has been going on since before he started exercising to the extent he does. He noticed he would feel "strange" before bed and started to monitor his heart rate during these episodes, noting it would go down to 40s, never lower than 45. - Will check for Lyme. (3) Prediabetes: Plan: - Glucose 150 today, last a1c 1 year ago. - Check A1c in AM. Plan: - Admit to PCU. - SCDs for VTE ppx. - Full Code. Admission and Anticipated Discharge Date Admission Date: October 30, 2021 Subjective 51 yo male reports feeling well. Patient had some LUQ discomfort he had described as gassy. During visit he was undecided if he wanted a cardiac cath. Review of Systems 2 Review of Systems: All systems reviewed & are unremarkable except as noted in HPI & below Physical Exam Physical Exam: General: awake, alert, no apparent distress Head: Normocephalic, atraumatic ENT: PERRL, EOMI, no pharyngeal exudate, mucous membranes moist Chest: Clear to auscultation, on room air, no adventitious breath sounds Cardiac: Regular rate and rhythm, no murmur, no JVD, normal peripheral pulses, good capillary refill Abdominal: NABS x 4 quadrants, soft, nontender to palpation, no rebound, guarding or tenderness Extremities: Normal inspection, no peripheral edema or erythema, calfs nontender to palpation Psych: Normal mood and affect Neuro: AAO x 3, strength intact bilaterally and rated 5/5, no motor deficits, speech is clear, no peripheral sensory deficits Skin: no rash or erythema Results & Data Results & Data ([facility]) Vital Signs (Past 12 Hours) Vital Signs Temp Pulse Pulse Resp BP BP Pulse Ox 10/31/21 16:50 36.9 C 52 L 18 103/64 98 10/31/21 16:20 36.9 C 48 L 18 96/58 L 97 10/31/21 15:50 37 C 51 L 20 109/72 97 10/31/21 15:27 48 L 16 110/72 98 10/31/21 15:00 48 L 16 98/63 L 97 10/31/21 14:45 52 L 16 102/55 L 97 10/31/21 13:16 78 18 101/72 96 10/31/21 11:17 37.2 C 45 L 18 117/75 117/75 97 10/31/21 08:00 47 L 10/31/21 07:36 37.1 C 53 L 20 106/65 95 PG Care Time/CCT Total # of Minutes Spent Total Time Spent with Patient: Total time spent is greater than 50% in coordination of care (as documented) at patient's floor/unit and/or counseling patient: Coding Level of Care Code 06565 Subseq Hosp Care Lvl 2 Diagnoses Chest pain R07.9 Bradycardia R00.1 Prediabetes R73.03
[2021-11-01] MEDS ORDERED: TICAGRELOR 90 MG TAB PO SCH (02:00)
[2021-11-01 07:39] LABS: Hematocrit (blood only) 38.8 % (42-52); Mean Corpuscular Hgb Conc 33.5 g/dL (32-36); Mean Corpuscular Volume 92.4 fL (80-100); Mean Platelet Volume 9.9 fL (7.4-10.4); Platelet Count 165 K/uL (130-400)
[2021-11-01] MEDS: ASPIRIN 81 MG ECTAB PO SCH (07:46)
[2021-11-01] MEDS: ATORVASTATIN 40 MG TAB PO SCH (07:47)
[2021-11-01 07:52] LABS: Partial Thromboplastin Ratio 1.1; Partial Thromboplastin Time 29.6 Seconds (21.0-31.0)
[2021-11-01 07:59] LABS: Calcium 8.2 mg/dl (8.5-10.1); Est GFR (Non-African American) 76.8 ml/min; Potassium 4.1 mmol/L (3.5-5.1)
[2021-11-01 08:07] LABS: Troponin I High Sensitivity 26594.9 pg/ml (0-20)
[2021-11-01] MEDS ORDERED: lisinopril 5 MG TAB PO SCH (09:00)
--- NOTE | 2021-11-01 11:10 | Cardiology Progress Note ---
Date of Service November 01, 2021 Assessment & Plan (1) CAD (coronary artery disease): Plan: 100% acute on chronic mid RCA occlusionpost PCI to proximal to mid RCA with 2 overlapping MANUELA No non-culprit disease 2. Preserved LV functioninferior hypokinesis, mild RV dysfunction 3. Mild AI 4. Dyslipidemia Stable from a cardiac standpoint. Okay for discharge today. Continue DAPT with aspirin, ticagrelor Continue lisinopril Continue current atorvastatin. we will hold off on beta-esperanza in the setting of resting sinus bradycardia Follow-up with me in 1 to 2 weeks. Discuss cardiac rehab at that time. (2) NSTEMI (non-ST elevated myocardial infarction): Admission and Anticipated Discharge Date Admission Date: October 30, 2021 Subjective Feeling well today. No recurrent chest pain, nausea. No residual blurry vision. No pain at right radial access site. Telemetry reviewedsinus bradycardia down to 30s overnight while sleeping. Review of Systems Review of Systems: All systems reviewed & are unremarkable except as noted in HPI & below Physical Exam Physical Exam: General: Comfortable HEENT: Sclerae anicteric Lungs: Clear to auscultation bilaterally, no crackles or wheezes Cardiac: Regular rate and rhythm, no murmurs. Vascular: Right radial artery access site with no ecchymosis, hematoma. Distal pulse and sensation intact. Abdomen: Soft, nontender Extremities: Well perfused, no peripheral edema Neuro: Nonfocal Psych: Alert orient x3, normal affect and mood Results & Data ([facility]) Vital Signs (Past 12 Hours) Vital Signs Temp Pulse Pulse Resp BP BP Pulse Ox 11/01/21 07:26 45 L 11/01/21 07:19 97.9 F 49 L 14 102/65 97 11/01/21 04:07 98.8 F 48 L 16 97/61 L 96 11/01/21 00:15 54 L 10/31/21 23:43 99.9 F H 59 L 18 100/62 94 PG Care Time/CCT Total # of Minutes Spent Total Time Spent with Patient: Total time spent is greater than 50% in coordination of care (as documented) at patient's floor/unit and/or counseling patient: Coding Level of Care Code 41889 Subseq Hosp Care Lvl 3 Diagnoses CAD (coronary artery disease) I25.10 NSTEMI (non-ST elevated myocardial infarction) I21.4
--- NOTE | 2021-11-01 11:21 | Discharge Summary ---
Date of Service November 01, 2021 Admission HPI Per Admitting Provider Fox Duque is a 51-year-old male with a history of prediabetes who presents today with chest pain. Earlier this afternoon, patient had acute onset of an upper chest/neck pain that felt like a tightness had come over him. It radiated into his shoulders and arms, more so left than right and he felt a heaviness. He began to feel nauseous and clammy, so he called his downstairs neighbor for assistance, and walked down to her apartment. When he got there but before he was able to sit down, he passed out, but regained consciousness very quickly. Neighbor promptly called EMS for transportation to ED for further evaluation. When he presented to ED, he rated his chest pain 8/10, but now after Nitropaste it is more like a 2/10. He was not physically active when the chest pain began or in the hours preceding the chest pain. 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 It has always gone away on its own without requiring intervention or radiating like today's pain did. In ED, pt is moderately hypertensive, HR in 50s, afebrile and SpO2 > 95% on RA. Labs significant for an initial high sensitivity trop 16.4, repeat 3 hours later 75.1. Glucose 150, otherwise labs unremarkable. CXR and chest CTA both unremarkable for acute process, specifically no PE or dissection noted. Principal Diagnosis NSTEMI, ACS Discharge Exam General: A&Ox3. NAD. Cooperative. HEENT: Atraumatic, normocephalic. Vision/hearing grossly intact Pulm: CTAB A&P. -wheezes, -rales, -rhonchi. Symmetrical chest rise. No increased work of breathing. No respiratory distress. Cardiac: RRR, -mrg. Radial pulses intact and symmetrical, R access site without swelling/hematoma. Abdominal: Nontender, nondistended, soft. BS present. Ext: Warm, dry. Cap refill in thumbs brisk. Discharge Data Allergies Allergy/AdvReac Type Severity Reaction Status Date / Time erythromycin base Allergy Intermediate Hives Verified 10/30/21 15:48 Consultations 10/30/21 17:53 ED Decision to Admit Stat 10/30/21 19:32 Consult Cardiology Routine 10/31/21 15:06 Consult Cardiac Rehabilitation Routine Procedures Performed Operation Date: 10/31/21 09:15 Actual Procedures p Cath, Left with Cors and Vent - Yoseph Bennett MD s Drug Eluting Stent SGl Vessel - Yoseph Bennett MD s Cineradiography w/Routine Exam - Yoseph Bennett MD Ordered Studies 10/30/21 15:24 CT angio chest PE protocol Stat 10/31/21 08:46 CL Cath Imgs for PACS use only Routine Hospital Course (1) Chest pain: NSTEMI/ACS - Presented with chest pain BMI > 30, prediabetic, 2 grandparents he believes had cardiac events early in life. - hsTrop 16.4 on presentation ~ 2 hours after initial chest pain, repeat 3 hours later--> 75.1, with T wave inversions in lead 3 and V1 on EKGs. - hsTrop uptrended to >20k, was taken to cath 10/31 - Took ASA at home prior to arrival. - Will trend troponin overnight. - Cath 10/31: 1. Acute on chronic earlymid RCA 100% occlusion with heavy thrombus burden 2. No significant nonculprit vessel CAD 3. Normal left-sided filling pressure 4. Successful PCI of proximal to mid RCA with 2 overlapping drug-eluting stents (4.0 x 8, 4.0 x 30 mm [place]; postdilated with 4.5 NC). - Recovered well with resolution of chest pain - Loaded with ticagrelor 180 mg in Vacuum Drier Tender - Continue ASA 81mg, Brilinta 90mg BID - Continue dual-antiplatelet therapy for at least 1 year. Consider extended therapy with heavy thrombus burden. - Continue statin, and ASCVD risk factor modification. Atorva 80mg continued on dc - Consult cardiac Rehab. To followup with cardiology in 2 weeks after dc - BB deferred due to bradycardia (2) Bradycardia: - HR in mid-high 50s here. Reports a longstanding history of a low heart rate, this has been going on since before he started exercising to the extent he does. He noticed he would feel "strange" before bed and started to monitor his heart rate during these episodes, noting it would go down to 40s, never lower than 45. - Lyme negative - BB deferred due to elias (3) Prediabetes: - Glucose 150 today, last a1c 1 year ago. - A1c 5.7% - Admit to PCU. - SCDs for VTE ppx. - Full Code. Total Time Total Time Spent Total Time Spent (In Minutes): Time spend day of discharge 40 minutes including direct patient care, documentation, review of labs and images, and coordination of care. Discharge Plan Discharge Items Patient Disposition: Home - Self-Care Reason For Visit: CHEST PAIN Discharge Diagnosis: ACS Condition on Discharge: Fair Activity: Per Instructions section Non-emergency contact: Primary Care Provider and Upholstery Covers Inspector Call non-emergency contact if: you have any medication questions, your symptoms worsen, your pain is not controlled and your pain is worsening Follow-up/Referrals: Landon Barone III, CRNP [Primary Care Provider] - Yoseph Bennett MD [Physician] - Diet: Heart Healthy Addtl Attending Provider Instructions: You were seen in the hospital for a heart attack. You underwent a cardiac catheterization, and had 2 overlapping stents placed in a blood vessel called RCA. Your chest pain improved following this procedure. You have been prescribed medications as below. You have also been referred to cardiac rehab. You have been prescribed 2 antiplatelet medications, aspirin and ticagrelor ( also called Brilinta). These are extremely important to take as prescribed as they help protect the stents that were placed in your heart. Please take aspirin 81 mg by mouth daily. Please also take ticagrelor 90 mg by mouth twice daily. You will need to take both of these medications for least 1 year. Please continue taking atorvastatin 80 mg by mouth daily. This is a statin medication that both lowers cholesterol and helps stabilize plaques that already exist in blood vessel gonzalez. You were started on blood pressure medication which also has benefits to heart remodeling after heart attack, this medication is called lisinopril. Please take lisinopril 5 mg by mouth daily. You should have a follow-up appointment with your primary care provider within 1 week, and with cardiology as noted above. If you do not receive a call to confirm these appointments within the next 48 hours, please call their offices at the phone number provided above. Pending Studies at Discharge: No Stand-Alone Forms: My Living Proof, Smoking Cessation Medications and DC Order Prescriptions: New Brilinta 90 mg Tablet 90 mg PO BID 90 Days Qty: 180 RF: 3 atorvastatin 40 mg Tablet 80 mg PO QAM 30 Days Qty: 60 RF: 3 lisinopril [Zestril] 5 mg Tablet 5 mg PO QAM 30 Days Qty: 30 RF: 3 aspirin 81 mg Tablet,Delayed Release (Dr/Ec) 81 mg PO QAM Qty: 30 RF: 3 Discontinued aspirin 325 mg Tablet 325 mg PO DIRECTED PRN (Reason: Headache) RF: 0 aspirin 81 mg Tablet,Chewable 243 mg PO ONCE PRN (Reason: Chest Pain) RF: 0 Discharge Orders: Discharge Order (Routine); Ordered 11/01/21 Ordered By: Haseeb Moscoso Admission Data Admit Date/Time: 10/30/21 18:35 Attending Provider: Haseeb Moscoso Admit Provider: Prince Martínez Primary Care Provider: Landon Barone III Other Providers: Prince Martínez ; Frank Singh ; Mateo Luo ; Bayron Owusu ; Puneet Miles ; Erick Munroe ; Grayson Beal Jr ; Bhavin Fung ; Gini Jaramlilo ; Kate Aviles ; Yoseph Bennett ; Sean Matta ; Kit Leavitt ; Rimma Chung ; Geetha Lindquist ; Jakub Schmidt ; Kennedy Deleon Michael K. ; Bertram Uriarte ; Puneet Reece V. Coding Level of Care Code D/C DAY MANAGEMENT >30 MINS Diagnoses Chest pain R07.9 Bradycardia R00.1 Prediabetes R73.03
--- NOTE | 2021-11-01 22:55 | Electrocardiogram Report ---
Test Reason : Blood Pressure : / mmHG Vent. Rate : 049 BPM Atrial Rate : 049 BPM P-R Int : 152 ms QRS Dur : 108 ms QT Int : 426 ms P-R-T Axes : 063 -13 019 degrees QTc Int : 384 ms Sinus bradycardia Minimal voltage criteria for LVH, may be normal variant ( R in aVL ) Inferior infarct (cited on or before 30-OCT-2021) Cannot rule out Anterior infarct , age undetermined Abnormal ECG When compared with ECG of 30-OCT-2021 20:31, No significant change was found Confirmed by Bhavin Fung ([id number]) on 11/01/2021 10:54:32 PM Referred By: REFERRED SELF Confirmed By:Bhavin Fung
== END 2021-11-01 12:27 | disposition home or self-care (01) | DRG 247 ==
LOC: ED 13:07 → 2S 18:35 → SUATTDRO 18:35 → 2S 19:28
DX: Z79.82 Long term (current) use of aspirin; I35.1 Nonrheumatic aortic (valve) insufficiency; I49.9 Cardiac arrhythmia, unspecified; I25.10 Atherosclerotic heart disease of native coronary artery without angina pectoris; Z88.1 Allergy status to other antibiotic agents; I21.4 Non-ST elevation (NSTEMI) myocardial infarction; I10 Essential (primary) hypertension